=== PATIENT | female | born 1970 | race Caucasian/White ===

== ENCOUNTER 2020-08-24 13:39 | Emergency (ER) | payer OTHER | END 2020-08-24 15:00 | disposition left against medical advice (07) | LOC: MADERS 13:39 | DX: S83.92XA Sprain of unspecified site of left knee, initial encounter (principal); R20.1 Hypoesthesia of skin; R43.0 Anosmia; Z79.899 Other long term (current) drug therapy ==

== ENCOUNTER 2020-11-04 10:27 | Outpatient (CLI) | payer OTHER ==
[2020-11-04 11:10] LABS: ALT (SGPT) 15 U/L (8-55); AST (SGOT) 20 U/L (5-34); Albumin 4.2 g/dL (3.5-5.0); Alkaline Phosphatase 84 U/L (40-110); Anion Gap 17 mmol/L (10-20); BUN (Urea Nitrogen) 21 mg/dL (7.0-18.7); Bilirubin, Total Less than 0.2 mg/dL (0.2-1.2); Calc. Creatinine Clearance 0 mL/min (70-130); Calcium 9.8 mg/dL (7.8-10.44); Carbon Dioxide 21 mmol/L (22-29); Cardiac Risk 3.1 (Less than 4.5); Chloride 107 mmol/L (98-107); Cholesterol 172 mg/dl (< 200 Desired); Globulin 3.2 g/dL (2.4-3.5); Glucose 92 mg/dL (70-105); HDL Cholesterol 56 mg/dL (>60 Neg Risk); LDL Cholesterol, Calculated 92 mg/dL; Potassium 4.6 mmol/L (3.5-5.1); Protein, Total 7.4 g/dL (6.0-8.3); Sodium 140 mmol/L (136-145); Triglycerides 119 mg/dL (Less than 150)
[2020-11-04 13:03] LABS: Band 1 % (5-11); Eosinophils 4 % (0-10); Hemoglobin 13.9 g/dL (12.0-16.0); Lymphocytes 27 % (21-51); MDiff Complete? YES; Mean Corpuscular HGB CONC 30.3 g/dL (32.0-36.0); Mean Corpuscular Hemoglobin 26.9 pg (27.0-31.0); Mean Corpuscular Volume 88.7 fL (78.0-98.0); Mean Platelet Volume 5.4 fL (7.4-10.4); Monocytes 6 % (0-10); Neutrophil 62 % (42-75); Platelet Count 410 thou/uL (130-400); Platelet Morphology Comment Appears Increased; RBC Distribution Width 14.4 % (11.5-14.5); Red Blood Cell (RBC) Count 5.16 mill/uL (4.20-5.40); White Blood Cell (WBC) Count 6.7 thou/uL (4.8-10.8)
[2020-11-04 16:31] LABS: Hemoglobin A1c 5.3 % (4.0-6.0)
== END 2020-11-04 10:28 | disposition home or self-care (01) ==
LOC: MADLAB 10:27
PROVIDERS: ATTEND Orthopaedic Surgery Adult Reconstructive Orthopaedic Surgery
DX: F25.0 Schizoaffective disorder, bipolar type (principal); Z79.899 Other long term (current) drug therapy
CPT/HCPCS: 36415; 80053; 80061; 80178; 83036; 85025

== ENCOUNTER 2020-12-12 12:25 | Emergency (ER) | payer OTHER ==
[2020-12-12] MEDS ORDERED: Fluorescein Opthalmic Strip ONE (12:44)
[2020-12-12] MEDS ORDERED: Proparacaine 0.5% Opth 15 ML BOT ONE (12:44)
== END 2020-12-12 13:05 | disposition home or self-care (01) ==
LOC: MADERS 12:25
DX: H10.9 Unspecified conjunctivitis (principal)
CPT/HCPCS: 99282

== ENCOUNTER 2021-04-30 11:41 | Emergency (ER) | payer OTHER ==
[2021-04-30 12:12] LABS: #Basophils 0.1 thou/uL (0.0-0.2); #Eosinphils 0.3 thou/uL (0.0-0.7); #Lymphocytes 2.2 thou/uL (1.20-3.40); #Monocytes 0.6 thou/uL (0.11-0.59); %Basophils 0.8 % (0.0-1.0); %Eosinophils 3.7 % (0.0-10.0); %Lymphocytes 30.5 % (21.0-51.0); %Neutrophils 56.2 % (42.0-75.0); Hemoglobin 13.6 g/dL (12.0-16.0); Mean Corpuscular HGB CONC 30.9 g/dL (32.0-36.0); Mean Corpuscular Hemoglobin 26.5 pg (27.0-31.0); Mean Corpuscular Volume 85.8 fL (78.0-98.0); Mean Platelet Volume 6.4 fL (7.4-10.4); Platelet Count 361 thou/uL (130-400); RBC Distribution Width 13.9 % (11.5-14.5); Red Blood Cell (RBC) Count 5.12 mill/uL (4.20-5.40); White Blood Cell (WBC) Count 7.1 thou/uL (4.8-10.8)
[2021-04-30 12:32] LABS: ALT (SGPT) 14 U/L (8-55); AST (SGOT) 15 U/L (5-34); Albumin 4.1 g/dL (3.5-5.0); Alkaline Phosphatase 74 U/L (40-110); Anion Gap 12 mmol/L (10-20); BUN (Urea Nitrogen) 8 mg/dL (7.0-18.7); Bilirubin, Total 0.2 mg/dL (0.2-1.2); Calc. Creatinine Clearance 0 mL/min (70-130); Calcium 9.3 mg/dL (7.8-10.44); Carbon Dioxide 25 mmol/L (22-29); Chloride 108 mmol/L (98-107); Globulin 3.5 g/dL (2.4-3.5); Glucose 80 mg/dL (70-105); Protein, Total 7.6 g/dL (6.0-8.3); Sodium 141 mmol/L (136-145)
[2021-04-30 12:33] LABS: Bilirubin Negative (Negative); Blood, Urine Negative (Negative); Clarity Clear (Clear); Glucose, Urine (Dipstick) Negative (Negative); Ketone, Urine Trace mg/dL (Negative); Leukocyte Negative (Negative); Nitrite Negative (Negative); Protein, Urine (Dipstick) Negative (Neg-Trace); Urobilinogen 0.2 mg/dL (Less than 2)
== END 2021-04-30 13:08 | disposition home or self-care (01) ==
LOC: MADERS 11:41
DX: F23 Brief psychotic disorder (principal); M25.462 Effusion, left knee
CPT/HCPCS: 80053; 81003; 85025; 99284

== ENCOUNTER 2021-07-27 15:14 | Emergency (ER) | payer MEDICAID, OTHER | END 2021-07-27 16:21 | disposition home or self-care (01) | LOC: MADERS 15:14 | DX: J01.90 Acute sinusitis, unspecified (principal); M25.562 Pain in left knee; Z79.899 Other long term (current) drug therapy | CPT/HCPCS: 99283 ==

== ENCOUNTER 2021-10-18 15:12 | Outpatient (CLI) | payer OTHER | END 2021-10-18 15:13 | disposition home or self-care (01) | LOC: MADRAD 15:12 | PROVIDERS: ATTEND Family Medicine | DX: M20.5X1 Other deformities of toe(s) (acquired), right foot (principal) ==

== ENCOUNTER 2022-01-07 14:47 | Outpatient (CLI) | payer OTHER ==
[2022-01-07 15:19] LABS: #Basophils 0.1 thou/uL (0.0-0.2); #Eosinphils 0.3 thou/uL (0.0-0.7); #Lymphocytes 2.8 thou/uL (1.20-3.40); #Monocytes 0.8 thou/uL (0.11-0.59); #Neutrophils 6.8 thou/uL (1.40-6.50); %Basophils 0.8 % (0.0-1.0); %Eosinophils 2.9 % (0.0-10.0); %Lymphocytes 25.7 % (21.0-51.0); %Monocytes 7.2 % (0.0-10.0); %Neutrophils 63.5 % (42.0-75.0); Hemoglobin 12.6 g/dL (12.0-16.0); Mean Corpuscular HGB CONC 31.5 g/dL (32.0-36.0); Mean Corpuscular Hemoglobin 27.7 pg (27.0-31.0); Mean Corpuscular Volume 87.9 fl (78.0-98.0); Platelet Count 443 10x3/uL (130-400); RBC Distribution Width 13.6 % (11.5-14.5); Red Blood Cell (RBC) Count 4.54 mill/uL (4.20-5.40); White Blood Cell (WBC) Count 10.8 10x3/uL (4.8-10.8)
[2022-01-07 15:35] LABS: ALT (SGPT) 9 U/L (8-55); AST (SGOT) 13 U/L (5-34); Alkaline Phosphatase 60 U/L (40-110); Anion Gap 14 mmol/L (10-20); BUN (Urea Nitrogen) 18 mg/dL (7.0-18.7); Bilirubin, Total 0.2 mg/dL (0.2-1.2); Calc. Creatinine Clearance 0 mL/min (70-130); Calcium 8.7 mg/dL (7.8-10.44); Carbon Dioxide 21 mmol/L (22-29); Chloride 106 mmol/L (98-107); Estimated GFR 69; Globulin 3.8 g/dL (2.4-3.5); Glucose 81 mg/dL (70-105); Potassium 4.4 mmol/L (3.5-5.1); Protein, Total 7.8 g/dL (6.0-8.3); Sodium 137 mmol/L (136-145)
== END 2022-01-07 14:48 | disposition home or self-care (01) ==
LOC: MADLAB 14:47
PROVIDERS: ATTEND Family Medicine
DX: Z01.818 Encounter for other preprocedural examination (principal)
CPT/HCPCS: 36415; 80053; 85025; 93005; 93010

== ENCOUNTER 2022-06-19 12:10 | Emergency (ER) | payer OTHER ==
[2022-06-19] MEDS ORDERED: predniSONE 20 MG TAB ONE (12:49)
[2022-06-19] MEDS ORDERED: predniSONE 10 MG TAB ONE (12:49)
[2022-06-19] MEDS ORDERED: Ipratropium/Albuterol 3 ML NEB ONE (12:49)
== END 2022-06-19 13:22 | disposition home or self-care (01) ==
LOC: MADERS 12:10
DX: J06.9 Acute upper respiratory infection, unspecified (principal); J44.9 Chronic obstructive pulmonary disease, unspecified; F17.290 Nicotine dependence, other tobacco product, uncomplicated; Z79.899 Other long term (current) drug therapy
CPT/HCPCS: 71045; J7512; J7620

== ENCOUNTER 2022-06-28 19:58 | Emergency (ER) | payer OTHER ==
[~2022-06-28 19:58] MED LIST: Iopamidol 370 76% 100 ML VIAL ONE; Sodium Chloride 0.9% 100 ML BAG ONE
[2022-06-28 22:37] LABS: #Basophils 0.1 thou/uL (0.0-0.2); #Eosinphils 0.5 thou/uL (0.0-0.7); #Lymphocytes 2.7 thou/uL (1.20-3.40); #Monocytes 1.4 thou/uL (0.11-0.59); #Neutrophils 14.1 thou/uL (1.40-6.50); %Basophils 0.3 % (0.0-1.0); %Eosinophils 2.5 % (0.0-10.0); %Lymphocytes 14.2 % (21.0-51.0); %Monocytes 7.7 % (0.0-10.0); %Neutrophils 75.3 % (42.0-75.0); Hemoglobin 4.6 g/dL (12.0-16.0); Mean Corpuscular HGB CONC 30.2 g/dL (32.0-36.0); Mean Corpuscular Hemoglobin 20.2 pg (27.0-31.0); Mean Corpuscular Volume 66.8 fl (78.0-98.0); Mean Platelet Volume 6.6 fL (7.4-10.4); Platelet Count 790 10x3/uL (130-400); RBC Distribution Width 18.6 % (11.5-14.5); Red Blood Cell (RBC) Count 2.27 mill/uL (4.20-5.40); White Blood Cell (WBC) Count 18.7 10x3/uL (4.8-10.8)
[2022-06-28 22:50] LABS: ALT (SGPT) 9 U/L (8-55); AST (SGOT) 9 U/L (5-34); Albumin 3.2 g/dL (3.5-5.0); Alkaline Phosphatase 38 U/L (40-110); Anion Gap 15 mmol/L (10-20); BUN (Urea Nitrogen) 18 mg/dL (9.8-20.1); Bilirubin, Total Less than 0.2 mg/dL (0.2-1.2); Calc. Creatinine Clearance 0 mL/min (70-130); Carbon Dioxide 20 mmol/L (22-29); Chloride 107 mmol/L (98-107); Estimated GFR 83; Glucose 102 mg/dL (70-105); Lipase 40 U/L (8-78); Potassium 3.8 mmol/L (3.5-5.1); Protein, Total 6.2 g/dL (6.0-8.3); Sodium 138 mmol/L (136-145)
[2022-06-28] MEDS ORDERED: Pantoprazole 40 MG VIAL ONE (22:50)
[2022-06-28 23:30] LABS: Anisocytosis MODERATE=16-30 cells (100X) (0-5/hpf); Hypochromia MODERATE=16-30 cells (100X) (0-5/hpf); Microcytosis MODERATE=15-30 cells (100X) (0-5/hpf); Ovalocytes SLIGHT = 2-5 cells (100X) (0-1/hpf)
[2022-06-28 23:31] LABS: Platelet Morphology Comment Appears Increased
[2022-06-29 00:35] LABS: INR-International Normal Ratio 1.2
== END 2022-06-29 02:42 | disposition short-term general hospital (02) ==
LOC: MADERS 19:58
DX: K92.2 Gastrointestinal hemorrhage, unspecified (principal); D64.9 Anemia, unspecified; F17.290 Nicotine dependence, other tobacco product, uncomplicated
CPT/HCPCS: 36415; 36430; 71045; 74177; 80053; 82274; 83605; 83690; 84484; 85025; 85060; 85610; 86850; 86900; 86901; 93005; 96365; 96366; C9113; P9016; Q9967

== ENCOUNTER 2023-09-15 10:39 | Outpatient (CLI) | payer OTHER | END 2023-09-15 10:40 | disposition home or self-care (01) | LOC: MADRAD 10:39 | PROVIDERS: ATTEND Nurse Practitioner Family | DX: M79.671 Pain in right foot (principal); Z98.890 Other specified postprocedural states ==

== ENCOUNTER 2024-02-25 11:15 | Outpatient (CLI) | payer OTHER | END 2024-02-25 11:16 | disposition home or self-care (01) | LOC: MADRAD 11:15 | PROVIDERS: ATTEND Nurse Practitioner Family | DX: M25.562 Pain in left knee (principal); M17.12 Unilateral primary osteoarthritis, left knee; M89.9 Disorder of bone, unspecified ==

== ENCOUNTER 2024-06-29 16:22 | Outpatient (CLI) | payer OTHER | END 2024-06-29 16:23 | disposition home or self-care (01) | LOC: MADRAD 16:22 | PROVIDERS: ATTEND Nurse Practitioner Family | DX: S69.92XA Unspecified injury of left wrist, hand and finger(s), initial encounter (principal); M79.671 Pain in right foot; M18.12 Unilateral primary osteoarthritis of first carpometacarpal joint, left hand ==